=== PATIENT | male | born 1970 | race Caucasian/White ===

== ENCOUNTER 2023-02-02 08:06 | Emergency (ER) | payer MEDICAID, OTHER ==
[~2023-02-02] VITALS: Ht 172.7 cm; Wt 91.0 kg
[2023-02-02 08:10] VITALS: BP 135/89
[2023-02-02 09:03] LABS: Basophils # (auto) 0.1 10 ^3/uL (0-0.2); Basophils % (auto) 0.6 % (0.0-2.0); Eosinophils # (auto) 0.2 10 ^3/uL (0-0.8); Eosinophils % (auto) 1.2 % (0.0-7.0); Hemoglobin 16.2 g/dL (13.5-17.5); Lymphocytes # (auto) 2.8 10 ^3/uL (0.4-5.4); Lymphocytes % (auto) 20.2 % (10.0-50.0); Mean Corpuscular Hemoglobin 31.7 pg (28.0-32.0); Mean Corpuscular Hgb Conc. 34.6 g/dL (32.0-36.0); Mean Corpuscular Volume 91.7 fL (80.0-100.0); Monocytes # (auto) 0.8 10 ^3/uL (0-1.3); Neutrophils # (auto) 10.1 10 ^3/uL (1.6-8.6); Nucleated Red Blood Cells % 0.1 %; Red Blood Cells 5.12 10^6/uL (4.5-5.90); Red Cell Distribution Width 12.7 % (11.8-14.3); White Blood Cell 14.1 10^3/uL (4.4-10.8)
[2023-02-02 09:21] LABS: Albumin 3.1 g/dL (3.4-5.0); Calcium 8.6 mg/dL (8.5-10.1); Potassium 4.4 mmol/L (3.5-5.1)
[2023-02-02 09:25] LABS: BUN/Creatinine Ratio 13.3 (10.0-20.0); Bilirubin, Total 0.5 mg/dL (0.2-1.0); Total Protein 7.3 g/dL (6.4-8.2)
[2023-02-02] MEDS ORDERED: DexAMETHasone 4 MG TAB PO ONE (10:45)
[2023-02-02] MEDS ORDERED: IPRATROPIUM BROM 0.5 MG/2.5ML INH SOL NEB ONE (10:45)
[2023-02-02] MEDS ORDERED: ALBUTEROL SULF 2.5 MG/0.5ML(0.5%) NEB SOLN NEB ONE (10:45)
[2023-02-02] MEDS ORDERED: ALBUTEROL SULF 2.5 MG/0.5ML(0.5%) NEB SOLN ONE (10:49)
[2023-02-02] MEDS ORDERED: IPRATROPIUM BROM 0.5 MG/2.5ML INH SOL ONE (10:50)
[2023-02-02] MEDS ORDERED: IOHEXOL 350 MG/ML 100ML IJ ONE (11:41)
== END 2023-02-02 14:42 | disposition left against medical advice (07) ==
LOC: EDBD 08:06 → ER 08:06
DX: R06.02 Shortness of breath (principal); F17.210 Nicotine dependence, cigarettes, uncomplicated; I10 Essential (primary) hypertension
CPT/HCPCS: 36415; 36600; 71045; 71275; 80053; 82805; 83880; 84484; 85025; 85379; 93005; 94640; 99285; J7644; Q9967

== ENCOUNTER 2024-09-20 23:58 | Inpatient (IN) | payer MEDICAID, OTHER ==
[~2024-09-20] VITALS: Ht 172.7 cm; Wt 72.4 kg
[2024-09-21] VITALS (9 sets, daily range): BP systolic 123–153; BP diastolic 79–109; PULSE 86–101; RESP 17–24; TEMP 97.6–97.9; O2SAT 95–100
--- NOTE | 2024-09-21 00:06 | ED.PDOC ---
SOB-HPI HPI Comments 54-year-old male who came to ER via EMS for shortness of breath. Patient does have history of diabetes but has poor compliance to his medications. Patient states for the past 2 days he has been generally weak, has cough and progressive shortness of breath and wheezing. Noted orthopnea. Blood sugar on scene was 31 3. He has never been diagnosed to have any respiratory ailments Chief Complaint: Shortness of breath Time Seen by MD: 00:11 Primary Care Provider: UNKNOWN Reviewed notes: Nurses Notes Information Source: Patient, Emergency Med Personnel Mode of Arrival: EMS Severity: Moderate Timing: Days Duration: Since onset Context: At Rest, With Light Exertion PE Risk Factors: None History of: None Prehospital treatment: Breathing Tx, Oxygen Past Medical History PAST MEDICAL HISTORY: DM Surgical History: Denies all surgeries Family History Family History: Reviewed,noncontributory to illness Social History Smoker: Cigarettes Alcohol: Denies ETOH Use Drugs: Denies Drug Use Lives In: Home Constitutional: reports: weakness; denies: chills, diaphoresis, fatigue, fever, malaise, sweats, others EENTM: denies: blurred vision, double vision, ear bleeding, ear discharge, ear drainage, ear pain, ear ringing, eye pain, eye redness, hearing loss, mouth pain, mouth swelling, nasal discharge, nose bleeding, nose congestion, nose pain, photophobia, tearing, throat pain, throat swelling, voice changes, others Respiratory: reports: cough, orthopnea, SOB at rest, shortness of breath, SOB with excertion; denies: hemoptysis, stridor, wheezing, others Cardiovascular: reports: chest pain; denies: dizzy spells, diaphoresis, Dyspnea on exertion, edema, irregular heart beat, left arm pain, lightheadedness, palpitations, PND, syncope, others Gastrointestinal: denies: abdomen distended, abdominal pain, blood streaked bowels, constipated, diarrhea, dysphagia, difficulty swallowing, hematemesis, melena, nausea, poor appetite, poor fluid intake, rectal bleeding, rectal pain, vomiting, others Genitourinary: denies: burning, dysuria, flank pain, frequency, hematuria, incontinence, penile discharge, penile sore, pain, testicle pain, testicle swelling, urgency, others Neurological: denies: dizziness, fainting, headache, left sided numbness, left sided weakness, numbness, paresthesia, pre-existing deficit, right sided numbness, right sided weakness, seizure, speech problems, tingling, tremors, weakness, others Musculoskeletal: denies: back pain, gout, joint pain, joint swelling, muscle pain, muscle stiffness, neck pain, others Integumetry: denies: bruises, change in color, change in hair/nails, dryness, laceration, lesions, lumps, rash, wounds, others Allergic/Immunocompromised: denies: Difficulty Healing, Frequent Infections, Hives, Itching, others Hematologic/Lymphatic: denies: anemia, blood clots, easy bleeding, easy bruising, swollen glands, others Endocrine: denies: excessive hunger, excessive sweating, excessive thirst, excessive urination, flushing, intolerance to cold, intolerance to heat, unexplained weight gain, unexplained weight loss, others Psychiatric: denies: anxiety, bipolar disorder, depression, hopeless, panic disorder, schizophrenia, sleepless, suicidal, others Physical Exam General Appearance: No Apparent Distress, Normal HEENT: Normal ENT Inspection, Pharynx Normal, TMs Normal Neck: Full Range of Motion, Non-Tender, Normal, Normal Inspection Respiratory: Chest Non-Tender, Lungs Clear, No Accessory Muscle Use, No Respiratory Distress, Normal Breath Sounds Cardiovascular: No Edema, No JVD, No Murmur, No Gallop, Normal Peripheral Pulses, Regular Rate/Rhythm Breast Exam: Deferred Gastrointestinal: No Organomegaly, Non Tender, No Pulsatile Mass, Normal Bowel Sounds, Soft Genitalia: Deferred Pelvic: Deferred Rectal: Deferred Extremities: No calf tenderness, Normal capillary refill, Normal inspection, Normal range of motion, Non-tender, No pedal edema Musculoskeletal : Apperance: Normal Neurologic: Alert, electronics engineering technologist II-XII nml as Tested, No Motor Deficits, Normal Affect, Normal Mood, No Sensory Deficits Cerebellar Function: Normal Reflexes: Normal Skin: Dry, Normal Color, Warm Lymphatic: No Adenopathy Was a procedure done? Was a procedure done?: No Differential Dx Differential Diagnosis: Asthma, Bronchitis, CHF, COPD, Pneumonia, Respiratory Distress X-Ray, Labs, Meds, VS Vital Signs Date Time Temp Pulse Resp B/P (MAP) Pulse Ox O2 Delivery O2 Flow Rate FiO2 09/21/24 02:30 102 23 167/108 (127) 89 09/21/24 00:36 101 24 153/109 (124) 100 09/21/24 00:23 22 98 Nasal Cannula* 2 28 09/21/24 00:15 95 09/21/24 00:08 98.4 90 30 136/92 (107) 100 Lab Test 09/21/24 01:25 09/21/24 00:27 Range/Units Troponin I High Sensitivity 28 28 </=54 ng/L White Blood Count 11.1 H 4.4-10.8 10^3/uL Red Blood Count 4.68 4.5-5.90 10^6/uL Hemoglobin 14.9 13.5-17.5 g/dL Hematocrit 44.8 41.0-53.0 % Mean Corpuscular Volume 95.7 80.0-100.0 fL Mean Corpuscular Hemoglobin 31.8 28.0-32.0 pg Mean Corpuscular Hemoglobin Concent 33.3 32.0-36.0 g/dL Red Cell Distribution Width 13.4 11.8-14.3 % Platelet Count 202 140-450 10^3/uL Mean Platelet Volume 8.1 6.9-10.8 fL Neutrophils (%) (Auto) 57.1 37.0-80.0 % Lymphocytes (%) (Auto) 31.8 10.0-50.0 % Monocytes (%) (Auto) 7.7 0.0-12.0 % Eosinophils (%) (Auto) 2.8 0.0-7.0 % Basophils (%) (Auto) 0.6 0.0-2.0 % Neutrophils # (Auto) 6.3 1.6-8.6 10 ^3/uL Lymphocytes # (Auto) 3.5 0.4-5.4 10 ^3/uL Monocytes # (Auto) 0.8 0-1.3 10 ^3/uL Eosinophils # (Auto) 0.3 0-0.8 10 ^3/uL Basophils # (Auto) 0.1 0-0.2 10 ^3/uL Nucleated Red Blood Cells 0.1 % Sodium Level 138 136-145 mmol/L Potassium Level 4.3 3.5-5.1 mmol/L Chloride Level 106 98-107 mmol/L Carbon Dioxide Level 28 20-31 mmol/L Anion Gap 4 L 5-15 Blood Urea Nitrogen 14 9-23 mg/dL Creatinine 0.88 0.700-1.30 mg/dL Glomerular Filtration Rate Calc 102 >90 mL/min BUN/Creatinine Ratio 15.9 10.0-20.0 Serum Glucose 308 H 74-106 mg/dL Calcium Level 8.8 8.7-10.4 mg/dL Magnesium Level 1.8 1.6-2.6 mg/dL Total Bilirubin 0.4 0.2-1.0 mg/dL Aspartate Amino Transferase (AST) 30 13-40 U/L Alanine Aminotransferase (ALT) 43 H 7-40 U/L Alkaline Phosphatase 123 H 46-116 U/L B-Type Natriuretic Peptide 497.83 0-100 pg/mL Total Protein 6.6 5.7-8.2 g/dL Albumin 3.6 3.2-4.8 g/dL Current Medications Medications (Trade) Dose Ordered Sig/Juan Route Start Time Stop Time Status Last Admin Albuterol (Ventolin Medneb) 5 mg ONCE ONCE HHN 09/21/24 00:15 09/21/24 00:16 DC 09/21/24 00:22 Ipratropium [place] (Atrovent Medneb) 1 mg ONCE ONCE N 09/21/24 00:15 09/21/24 00:16 DC 09/21/24 00:22 Magnesium Sulfate/ Dextrose 100 ml @ 100 mls/hr Q1H IV 09/21/24 00:15 09/21/24 02:14 DC 09/21/24 01:56 Time of 1ST Reevaluation: 00:05 Reevaluation 1ST: Unchanged Time of 2ND Reevaluation: 03:08 Reevaluation 2ND: Unchanged (PATIENT BECOMES HYPOXIC WHEN TAKEN OFF OF OXYGEN, WILL ADMIT FOR SUPPORTIVE CARE) Patient Education/Counseling: Diagnosis, Treatment Family Education/Counseling: No Family Present Departure 1 Departure Time of Disposition: 03:37 Impression: Primary Impression: COPD with acute exacerbation Additional Impressions: Type 2 diabetes mellitus with hyperglycemia Respiratory failure with hypoxia Disposition: ADMITTED INPATIENT Admit to: Med Surg Condition: Guarded e-Prescriptions Metformin Hydrochloride (Metformin Hcl) 1,000 Mg Tab 1 TAB PO BID for 90 Days, #180 TAB 3 Refills Prov: JESSE MARIE MD 09/21/24 Azithromycin (Azithromycin) 500 Mg Tab 1 TAB PO DAILY for 7 Days, #7 TAB Prov: JESSE MARIE MD 09/21/24 Albuterol Sulfate (Albuterol Sulfate Hfa) 108 Mcg/Act Aer 108 MCG IN Q4HP PRN for 10 Days, #1 AER 3 Refills Prov: JESSE MARIE MD 09/21/24 Critical Care Note Critical Care Time?: Yes (35 min-critical care time only) Stability Stability form required: No Heart Score Heart Score: Heart Score Response (Comments) Value History Moderate Suspicious 1 EKG Normal 0 Age 45-64 1 Risk Factors 1 or 2 risk factors 1 Troponin Normal limit 0 Total 3 I personally scribed for JESSE MARIE MD ([email or web address]) on 09/21/24 at 00:06. Electronically submitted by Wilver Peck ([email or web address]). I personally scribed for JESSE MARIE MD ([email or web address]) on 09/21/24 at 00:13. Electronically submitted by Wilver Peck ([email or web address]). I personally scribed for JESSE MARIE MD ([email or web address]) on 09/21/24 at 02:54. Electronically submitted by Wilver Peck ([email or web address]). JESSE MARIE MD Sep 21, 2024 00:06
[2024-09-21] MEDS: ALBUTEROL SULF 2.5 MG/0.5ML(0.5%) NEB SOLN HHN ONE (00:22)
[2024-09-21] MEDS: IPRATROPIUM BROM 0.5 MG/2.5ML INH SOL HHN ONE (00:22)
--- NOTE | 2024-09-21 00:35 | DVH ---
CHEST RADIOGRAPH Indication: SOB Technique: Single frontal view of the chest was obtained COMPARISON: XY CHEST PORTABLE on DOS: 02/02/23 FINDINGS: Lines and Tubes: None Lungs: Questionable mild interstitial pulmonary edema. Pleura: No effusion. No pneumothorax. Cardiomediastinal contours: Cardiomegaly Bones: Unremarkable IMPRESSION: 1. Questionable mild interstitial pulmonary edema.
[2024-09-21] MEDS: MAGNESIUM SULFATE 1GM/100ML 100 ML IV SCH (00:36)
[2024-09-21 00:47] LABS: Basophils # (auto) 0.1 10 ^3/uL (0-0.2); Basophils % (auto) 0.6 % (0.0-2.0); Eosinophils # (auto) 0.3 10 ^3/uL (0-0.8); Eosinophils % (auto) 2.8 % (0.0-7.0); Hematocrit 44.8 % (41.0-53.0); Hemoglobin 14.9 g/dL (13.5-17.5); Lymphocytes # (auto) 3.5 10 ^3/uL (0.4-5.4); Lymphocytes % (auto) 31.8 % (10.0-50.0); Mean Corpuscular Hemoglobin 31.8 pg (28.0-32.0); Mean Corpuscular Hgb Conc. 33.3 g/dL (32.0-36.0); Mean Corpuscular Volume 95.7 fL (80.0-100.0); Monocytes # (auto) 0.8 10 ^3/uL (0-1.3); Monocytes % (auto) 7.7 % (0.0-12.0); Neutrophils # (auto) 6.3 10 ^3/uL (1.6-8.6); Neutrophils % (auto) 57.1 % (37.0-80.0); Nucleated Red Blood Cells % 0.1 %; Platelet Count (auto) 202 10^3/uL (140-450); Red Blood Cells 4.68 10^6/uL (4.5-5.90); Red Cell Distribution Width 13.4 % (11.8-14.3); White Blood Cell 11.1 10^3/uL (4.4-10.8)
[2024-09-21 01:02] LABS: Alanine Aminotransferase 43 U/L (7-40); Albumin 3.6 g/dL (3.2-4.8); Alkaline Phosphatase 123 U/L (46-116); Anion Gap 4 (5-15); Aspartate Aminotransferase 30 U/L (13-40); BUN/Creatinine Ratio 15.9 (10.0-20.0); Blood Urea Nitrogen 14 mg/dL (9-23); Calcium 8.8 mg/dL (8.7-10.4); Carbon Dioxide 28 mmol/L (20-31); Chloride 106 mmol/L (98-107); Glucose 308 mg/dL (74-106); Magnesium 1.8 mg/dL (1.6-2.6); Potassium 4.3 mmol/L (3.5-5.1); Sodium 138 mmol/L (136-145)
[2024-09-21 01:03] LABS: Bilirubin, Total 0.4 mg/dL (0.2-1.0); Total Protein 6.6 g/dL (5.7-8.2)
[2024-09-21] MEDS ORDERED: ALBU108A5 IN (01:32)
[2024-09-21] MEDS ORDERED: AZIT500T66 PO (01:33)
[2024-09-21] MEDS ORDERED: METF-372 PO (01:34)
[2024-09-21] MEDS ORDERED: HYDROcodone-ACET 5/325MG TAB PO PRN (03:45)
[2024-09-21] MEDS ORDERED: ONDANSETRON HCL 4 MG/2 ML VIAL IV PRN (03:45)
[2024-09-21] MEDS ORDERED: ALBUTEROL SULF 2.5 MG/0.5ML(0.5%) NEB SOLN NEB PRN (03:45)
[2024-09-21] MEDS ORDERED: DOCUSATE SOD 100 MG CAP PO PRN (03:45)
[2024-09-21] MEDS ORDERED: ACETAMINOPHEN 325 MG TAB PO PRN (03:45)
[2024-09-21] MEDS ORDERED: hydrALAZINE HCL 20 MG/ML VL IV PRN (03:45)
[2024-09-21] MEDS ORDERED: DEXTROSE (50%) 50ML SYRG IV PRN (03:45)
[2024-09-21] MEDS ORDERED: IPRATROPIUM BROM 0.5 MG/2.5ML INH SOL NEB PRN (03:45)
--- NOTE | 2024-09-21 04:28 | DVHHP2 ---
History of Present Illness Reason for Visit: Acute exacerbation of congestive heart failure History of Present Illness The patient is a 54-year-old male with past medical history of diabetes mellitus who presented [facility] ED with complaint of shortness of breaths. Patient reports symptoms progressively get worse with cough, wheezing, orthopnea, shortness of at rest, getting worse today that prompted this visit. Patient was seen and evaluated in the ED, laboratory data shows WBC 11.1 platelets 202, sodium 138, potassium 4.3, BUN 14, creatinine 0.88, GFR 102, glucose 308, AST 30, ALT 43, troponin 28, BNP 497.83, blood pressure 167/103, heart rate 102, temperature 98.4 F, O2 saturation 96% on oxygen. Chest x-ray revealing questionable mild interstitial pulmonary edema. Patient was given breathing treatment, started on IV Lasix, please see medication orders section in the computer. On my assessment, patient denied chest pain, no headache, no d izziness, no diaphoresis, no palpitations, no abdominal pain no nausea, no vomiting, no fever, no chills. Patient was admitted for further evaluation and medical management. Past Medical History DM Past Surgical History Denies all surgeries Family History Reviewed, noncontributory to the management of this case. Past Social History Patient lives at home, smokes cigarettes, denies alcohol or illicit drugs abuse. Review of Systems Constitutional: Yes: Weakness; No: Fever, Chills, Sweats, Malaise, Other Eyes: No: Pain, Vision change, Conjunctivae inflammation, Eyelid inflammation, Other, Redness ENT: No: Ear pain, Ear discharge, Nose pain, Nose discharge, Nose congestion, Mouth pain, Mouth swelling, Throat pain, Throat swelling, Other Respiratory: Cough, Shortness of breath, SOB with excertion, Other (SOB at rest); No: Dry, Wheezing, Hemoptysis, Pleuritic Pain, Sputum, Wheezing Cardiovascular: Chest Pain, Orthopnea; No: Palpitations, Paroxysmal Noc. Dyspnea, Edema, Lt Headedness, Other Gastrointestinal: No: Nausea, Vomiting, Abdominal Pain, Diarrhea, Constipation, Melena, Hematochezia, Other Genitourinary: No Dysuria, No Frequency, No Incontinence, No Hematuria, No Retention, No Other Musculoskeletal: No: other, neck pain, shoulder pain, arm pain, back pain, hand pain, leg pain, foot pain Skin: No: Rash, Lesions, Jaundice, Bruising, Other Neurological: No: Weakness, Numbness, Incoordination, Change in speech, Confusion, Seizures, Other Allergies: Coded Allergies: Penicillins (Verified Allergy, Unknown, 02/02/23) Tetanus Toxoid (Verified Allergy, Unknown, 02/02/23) Medications Current Medications Medications Dose Ordered Sig/Juan Route Start Time Stop Time Status Last Admin Dose Admin Furosemide 40 mg DAILY IV 09/21/24 10:00 Albuterol 2.5 mg Q4HPRN PRN NEB 09/21/24 03:45 Ipratropium [place] 0.5 mg Q4HPRN PRN NEB 09/21/24 03:45 Hydralazine HCl 10 mg Q6HP PRN IV 09/21/24 03:45 Diagnostic Test (Pha) 1 strip ACHS 09/21/24 07:00 Insulin Human Regular HS SC 09/21/24 22:00 Insulin Human Regular AC SC 09/21/24 07:00 Dextrose 50 ml UD PRN IV 09/21/24 03:45 Sodium Chloride 10 ml Q8HR IV 09/21/24 06:00 Acetaminophen/ Hydrocodone Bitart 1 tab Q4HP PRN PO 09/21/24 03:45 Ondansetron HCl 4 mg Q4HP PRN IV 09/21/24 03:45 Docusate Sodium 100 mg BIDPRN PRN PO 09/21/24 03:45 Acetaminophen 650 mg Q6HP PRN PO 09/21/24 03:45 Exam Vital Signs Vital Signs Date Time Temp Pulse Resp B/P (MAP) Pulse Ox O2 Delivery O2 Flow Rate FiO2 09/21/24 03:51 101 24 153/109 98 2.0 28 09/21/24 00:23 Nasal Cannula* 09/21/24 00:08 98.4 General Appearance: Alert, Oriented X3, Cooperative, No acute distress HEENT: Atraumatic, PERRLA, EOMI, Mucous membr. moist/pink Respiratory: Normal air movement, Other (Diminished breath sounds) Cardiovascular: Regular rate, Normal S1, Normal S2, No murmurs Abdominal: Normal bowel sounds, Soft, No tenderness, No hepatospenomegaly, No masses Extremities: No clubbing, No cyanosis, No edema, Normal pulses, No tenderness/swelling Skin: No rashes, No breakdown, No significant lesion Neuro: Normal gait, Normal speech, Strength at 5/5 X4 ext, Normal tone, Sensation intact, Cranial nerves 3-12 NL, Reflexes 2+ Psych/Mental Status: Mental status NL, Mood NL Labs/Xrays Labs Test 09/21/24 01:25 09/21/24 00:27 Range/Units Troponin I High Sensitivity 28 </=54 ng/L White Blood Count 11.1 H 4.4-10.8 10^3/uL Red Blood Count 4.68 4.5-5.90 10^6/uL Hemoglobin 14.9 13.5-17.5 g/dL Hematocrit 44.8 41.0-53.0 % Mean Corpuscular Volume 95.7 80.0-100.0 fL Mean Corpuscular Hemoglobin 31.8 28.0-32.0 pg Mean Corpuscular Hemoglobin Concent 33.3 32.0-36.0 g/dL Red Cell Distribution Width 13.4 11.8-14.3 % Platelet Count 202 140-450 10^3/uL Mean Platelet Volume 8.1 6.9-10.8 fL Neutrophils (%) (Auto) 57.1 37.0-80.0 % Lymphocytes (%) (Auto) 31.8 10.0-50.0 % Monocytes (%) (Auto) 7.7 0.0-12.0 % Eosinophils (%) (Auto) 2.8 0.0-7.0 % Basophils (%) (Auto) 0.6 0.0-2.0 % Neutrophils # (Auto) 6.3 1.6-8.6 10 ^3/uL Lymphocytes # (Auto) 3.5 0.4-5.4 10 ^3/uL Monocytes # (Auto) 0.8 0-1.3 10 ^3/uL Eosinophils # (Auto) 0.3 0-0.8 10 ^3/uL Basophils # (Auto) 0.1 0-0.2 10 ^3/uL Nucleated Red Blood Cells 0.1 % Sodium Level 138 136-145 mmol/L Potassium Level 4.3 3.5-5.1 mmol/L Chloride Level 106 98-107 mmol/L Carbon Dioxide Level 28 20-31 mmol/L Anion Gap 4 L 5-15 Blood Urea Nitrogen 14 9-23 mg/dL Creatinine 0.88 0.700-1.30 mg/dL Glomerular Filtration Rate Calc 102 >90 mL/min BUN/Creatinine Ratio 15.9 10.0-20.0 Serum Glucose 308 H 74-106 mg/dL Calcium Level 8.8 8.7-10.4 mg/dL Magnesium Level 1.8 1.6-2.6 mg/dL Total Bilirubin 0.4 0.2-1.0 mg/dL Aspartate Amino Transferase (AST) 30 13-40 U/L Alanine Aminotransferase (ALT) 43 H 7-40 U/L Alkaline Phosphatase 123 H 46-116 U/L B-Type Natriuretic Peptide 497.83 0-100 pg/mL Total Protein 6.6 5.7-8.2 g/dL Albumin 3.6 3.2-4.8 g/dL PATIENT: RACHEL HINSON ACCT: [id number] UNIT: [id number] : 1970 LOC: ER ROOM / BED: / AGE / SEX: 54 / M ADM STATUS: REG ER SERVICE 0004 ORDERING PHYSICIAN: JESSE MARIE MD PROCEDURE(s): CXRP - CHEST PORTABLE REASON: SOB ORDER NUMBER(s): [id number], ACCESSION NUMBER(s): [id number] CHEST RADIOGRAPH Indication: SOB Technique: Single frontal view of the chest was obtained COMPARISON: XY CHEST PORTABLE on DOS: 02/02/23 FINDINGS: Lines and Tubes: None Lungs: Questionable mild interstitial pulmonary edema. Pleura: No effusion. No pneumothorax. Cardiomediastinal contours: Cardiomegaly Bones: Unremarkable IMPRESSION: 1. Questionable mild interstitial pulmonary edema. Assessment/Plan Assessment/Plan Leukocytosis, unspecified COPD with acute exacerbation Type 2 diabetes mellitus with hyperglycemia Respiratory failure with hypoxia Acute exacerbation of congestive heart failure Plan 1. Admit to telemetry unit 2. Breathing treatment 3. Pain control management 4. Management of fluids and electrolytes 5. Consultation for Cardiology 6. Diagnostic tests chest x-ray 7. DVT prophylaxis-on SCDs 8. Repeat labs CBC, CMP in a.m. 9. Continue with current medical management 10. Treatment plan discussed with patient and RN. Patient verbalized understanding. Plan discussed with: Patient, Other (RN) My Orders Orders - KEITH CRAMER DNP Procedure Category Date Status Time Complete Blood Count LAB 09/21/24 Logged 04:00 Comprehensive LAB 09/21/24 Logged Metabolic Panel 04:00 Consistent DIET 09/21/24 Transmitted Carb(Ccho)Diabetes Breakfast Furosemide Injection PHA 09/21/24 In Process (Lasix Injection) 10:00 Albuterol Medneb PHA 09/21/24 In Process (Ventolin Medneb) 03:45 Ipratropium Medneb PHA 09/21/24 In Process (Atrovent Medneb) 03:45 Hydralazine Injection PHA 09/21/24 In Process (Apresoline Inject 03:45 Glucose Blood PHA 09/21/24 In Process (Accu-Chek Comfort 07:00 Insulin R (Human) PHA 09/21/24 In Process (Insulin R) 22:00 Insulin R (Human) PHA 09/21/24 In Process (Insulin R) 07:00 Dextrose 50% Syringe PHA 09/21/24 In Process 03:45 Allergies KATLYN 09/21/24 In Process 03:33 Code Status CODE 09/21/24 Transmitted 03:33 Sodium Chloride Lock PHA 09/21/24 In Process (Saline Lock Ns) 06:00 Oxygen Per Hour RT 09/21/24 Transmitted 03:33 Hydrocodone-Acet PHA 09/21/24 In Process 5/325mg Tab ([place] 03:45 Ondansetron Hcl PHA 09/21/24 In Process (Zofran) 03:45 Docusate Sodium PHA 09/21/24 In Process Capsule (Colace 03:45 Complete Blood Count LAB 09/22/24 Verified 04:00 Comprehensive LAB 09/22/24 Verified Metabolic Panel 04:00 Cardiac DIET 09/21/24 Transmitted Diet-2gna,Lofat,Lochol Breakfast Echo 2d Mode Cardiac US 09/21/24 Logged DOP 03:33 Condition: Serious KATLYN 09/21/24 In Process 03:33 Acetaminophen Tablet PHA 09/21/24 In Process (Tylenol Tablet) 03:45 Bedrest With Bathroom KATLYN 09/21/24 In Process Privileg 03:33 Sequential KATLYN 09/21/24 In Process Compression Device Admit ADMIT 09/21/24 Verified 04:26 Nitroglycerin PHA 09/21/24 Verified Sublingual (Ntrostat 04:30 Morphine Sulfate PHA 09/21/24 Verified Injection 04:30 Notify Of Changes KATLYN 09/21/24 Verified From Base 04:26 Primary Substance Abuse Counselor For KATLYN 09/21/24 Verified 24 Hours 04:26 Emergency Dysrhythmia [facility] 09/21/24 Verified Protocol 04:26 Rhythm Strips Once [facility] 09/21/24 Verified Every Shift 04:26 Oxygen By Nasal RT 09/21/24 Verified Cannula 04:26 Problem List: (1) Leukocytosis, unspecified (2) COPD with acute exacerbation (3) Respiratory failure with hypoxia (4) Type 2 diabetes mellitus with hyperglycemia (5) Acute exacerbation of congestive heart failure Date of Service: Sep 21, 2024 Billing Provider: KEITH CRAMER DNP Common Visit Codes: [id number] INP/OBS CARE (HIGH) KEITH CRAMER DNP Sep 21, 2024 04:28
[2024-09-21] MEDS ORDERED: MORPHINE SULFATE INJ 2 MG/ml SYRG IV PRN (04:30)
[2024-09-21] MEDS ORDERED: NITROGLYCERIN 0.4 MG SL TAB SL PRN (04:30)
[2024-09-21] MEDS: FUROSEMIDE 40 MG/4 ML VIAL IV ONE (05:32)
[2024-09-21] MEDS: SODIUM CHLOR 0.9% PF (SALINE LOCK) 10ML VIAL/SYR IV SCH (05:34)
--- NOTE | 2024-09-21 06:46 | ECG ---
[facility] Test Date: 2024-09-21 Test Time: 00:15:24 Pat Name: RACHEL HINSON Department: ED Room: 0212T Gender: M [employer] Technician: RADHA : 1970 Requested By: JESSE MARIE Order Number: [id number] Reading MD: Rashaad Lemus Measurements Intervals [place] Rate: 95 P: 55 RI: 152 QRS: -5 QRSD: 96 T: 106 QT: 372 QTc: 468 Interpretive Statements Sinus rhythm Probable LVH with secondary repol abnrm Anterior ST elevation, probably due to LVH Electronically Signed On 09-24-2024 8:19:50 PST by Rashaad Lemus Please click the below link to view image of tracing.
[2024-09-21] MEDS: ACCU-CHEK COMFORT CURVE STRIP VI SCH (06:49)
[2024-09-21 07:40] LABS: Alanine Aminotransferase 44 U/L (7-40); Albumin 3.7 g/dL (3.2-4.8); Alkaline Phosphatase 137 U/L (46-116); Anion Gap 5 (5-15); Aspartate Aminotransferase 27 U/L (13-40); BUN/Creatinine Ratio 14.7 (10.0-20.0); Bilirubin, Total 0.6 mg/dL (0.2-1.0); Blood Urea Nitrogen 15 mg/dL (9-23); Calcium 8.8 mg/dL (8.7-10.4); Carbon Dioxide 28 mmol/L (20-31); Chloride 102 mmol/L (98-107); Glucose 370 mg/dL (74-106); Potassium 4.2 mmol/L (3.5-5.1); Sodium 135 mmol/L (136-145); Total Protein 7.1 g/dL (5.7-8.2)
[2024-09-21 08:10] LABS: Urine Bacteria None Seen /hpf (None Seen)
[2024-09-21 08:14] LABS: Basophils # (auto) 0.1 10 ^3/uL (0-0.2); Basophils % (auto) 0.5 % (0.0-2.0); Eosinophils # (auto) 0.2 10 ^3/uL (0-0.8); Eosinophils % (auto) 1.9 % (0.0-7.0); Hematocrit 47.8 % (41.0-53.0); Hemoglobin 15.8 g/dL (13.5-17.5); Lymphocytes # (auto) 2.6 10 ^3/uL (0.4-5.4); Lymphocytes % (auto) 24.6 % (10.0-50.0); Mean Corpuscular Hemoglobin 31.7 pg (28.0-32.0); Mean Corpuscular Hgb Conc. 33.1 g/dL (32.0-36.0); Mean Corpuscular Volume 95.8 fL (80.0-100.0); Monocytes # (auto) 0.9 10 ^3/uL (0-1.3); Monocytes % (auto) 8.1 % (0.0-12.0); Neutrophils # (auto) 6.8 10 ^3/uL (1.6-8.6); Neutrophils % (auto) 64.9 % (37.0-80.0); Nucleated Red Blood Cells % 0.1 %; Platelet Count (auto) 206 10^3/uL (140-450); Red Blood Cells 4.99 10^6/uL (4.5-5.90); Red Cell Distribution Width 13.8 % (11.8-14.3); White Blood Cell 10.5 10^3/uL (4.4-10.8)
[2024-09-21 08:17] LABS: Urine Blood Negative /uL (Negative); Urine Clarity Clear (Clear); Urine Color Light-Yellow (Yellow); Urine Hyaline Cast FEW /lpf (0 - 2); Urine Protein, UAD 2+ (Negative); Urine Specific Gravity 1.017 (1.001-1.035); Urine Urobilinogen Normal (Negative); Urine WBC <1 /hpf (0 - 3)
[2024-09-21] MEDS: InsuLIN REG 1unit/0.01ml Soln (100units/ml) SC SCH (08:22)
[2024-09-21] MEDS: FUROSEMIDE 40 MG/4 ML VIAL IV SCH (10:23)
[2024-09-21] MEDS: CARVEDILOL 3.125 MG TAB PO SCH (10:24)
[2024-09-21] MEDS: NICOTINE 21MG/24 HR TOPICAL PATCH TD SCH (10:24)
[2024-09-21 11:59] LABS: Amphetamine Screen, Urine Pos (NEGATIVE); Barbiturate Scree,Urine Neg (NEGATIVE); Benzodiazephine Screen, Urine Neg (NEGATIVE); Cocaine Screen, Urine Neg (NEGATIVE); Opiate Scree,Urine Neg (NEGATIVE)
[2024-09-21 11:59] LABS: Triglycerides 118 mg/dL (< 150)
[2024-09-21 12:00] LABS: LDL Cholesterol 125 mg/dL (< 100)
[2024-09-21 12:00] LABS: Cannabinoid Screen, Urine Pos (NEGATIVE); Phencyclidine Screen, Urine Neg (NEGATIVE)
[2024-09-21 12:01] LABS: Cholesterol 174 mg/dL (< 200); HDL Cholesterol 42 mg/dL (40-59)
--- NOTE | 2024-09-21 13:14 | DVHINCON2 ---
Date Seen: Sep 21, 2024 Referring Physician SHILPA Copeland Reason for Consultation CHF exacerbation History of Present Illness This is a 54-year-old male patient who presents to the emergency room with chief complaint of worsening shortness of breath for three days. The patient states he has been having issues with orthopnea and dyspnea on exertion. He comes to the emergency room for further evaluation. Cardiology is now being consulted for CHF exacerbation. The patient denies any previous history of congestive heart failure. Initial twelve lead electrocardiogram reveals normal sinus rhythm without any significant ST segment changes. Initial BNP level of 497.83pg/mL. Significant past medical history includes hypertension, type 2 diabetes mellitus, tobacco use, amphetamine abuse, and obesity. The patient admits to using methamphetamine approximately three days ago. He denies any previous cardiac history. Past Medical History Past medical history reviewed. No other significant than mentioned above. Past Surgical History Tonsillectomy Family History Family history reviewed. Social History Patient admits to methamphetamine abuse, toxicology screen positive for amphetamines and cannabinoids Patient has a 10 pack-year history, reports smoking half a pack per day Patient denies any alcohol abuse Allergies: Coded Allergies: Penicillins (Verified Allergy, Unknown, 02/02/23) Tetanus Toxoid (Verified Allergy, Unknown, 02/02/23) Home Meds Active Scripts Metformin Hydrochloride (Metformin Hcl) 1,000 Mg Tab, 1 TAB PO BID for 90 Days, #180 TAB 3 Refills Prov:JESSE MARIE MD 09/21/24 Azithromycin (Azithromycin) 500 Mg Tab, 1 TAB PO DAILY for 7 Days, #7 TAB Prov:JESSE MARIE MD 09/21/24 Albuterol Sulfate (Albuterol Sulfate Hfa) 108 Mcg/Act Aer, 108 MCG IN Q4HP PRN for 10 Days, #1 AER 3 Refills Prov:JESSE MARIE MD 09/21/24 Home Meds Home medications reviewed. Current Medications Current Medications Medications (Trade) Dose Ordered Sig/Juan Route PRN Reason Start Time Stop Time Status Last Admin Magnesium Sulfate/ Dextrose 100 ml @ 100 mls/hr Q1H IV 09/21/24 00:15 09/21/24 02:14 DC 09/21/24 01:56 Furosemide (Lasix Injection) 40 mg DAILY IV 09/21/24 10:00 09/21/24 10:23 Albuterol (Ventolin Medneb) 2.5 mg Q4HPRN PRN NEB SHORTNESS OF BREATH 09/21/24 03:45 Ipratropium [place] (Atrovent Medneb) 0.5 mg Q4HPRN PRN NEB SHORTNESS OF BREATH 09/21/24 03:45 Hydralazine HCl (Apresoline Injection) 10 mg Q6HP PRN IV SBP>150 09/21/24 03:45 Diagnostic Test (Pha) (Accu-Chek Comfort Curve T) 1 strip ACHS 09/21/24 07:00 09/21/24 11:30 Insulin Human Regular (InsuLIN R) HS SC 09/21/24 22:00 Insulin Human Regular (InsuLIN R) AC SC 09/21/24 07:00 09/21/24 12:05 Dextrose 50 ml UD PRN IV Blood Sugar LESS THAN 60 09/21/24 03:45 Sodium Chloride (Saline Lock Ns) 10 ml Q8HR IV 09/21/24 06:00 09/21/24 05:34 Acetaminophen/ Hydrocodone Bitart ([place] 5/325MG Tab) 1 tab Q4HP PRN PO MODERATE PAIN (4-6 PAIN SCALE) 09/21/24 03:45 Ondansetron HCl (Zofran) 4 mg Q4HP PRN IV NAUSEA / VOMITING 09/21/24 03:45 Docusate Sodium (Colace Capsule) 100 mg BIDPRN PRN PO FOR CONSTIPATION 09/21/24 03:45 Acetaminophen (Tylenol Tablet) 650 mg Q6HP PRN PO PAIN SCALE 1-3 OR TEMP>100.4 09/21/24 03:45 Nitroglycerin (Ntrostat Sublingual) 0.4 mg Q5MINP PRN SL FOR CHEST PAIN 09/21/24 04:30 Morphine Sulfate 2 mg Q30M PRN IV FOR CHEST PAIN 09/21/24 04:30 Nicotine (Nicoderm 21MG/ 24HR) 1 patch DAILY TD 09/21/24 10:00 09/21/24 10:24 Carvedilol (Coreg Tablet) 6.25 mg Q12HR PO 09/21/24 10:00 09/21/24 10:24 Review of Systems Constitutional: No symptom reported Ears, Nose, & Throat: No symptom reported Eyes: No symptom reported Neurological: No symptoms reported Pulmonary/Respiratory: Shortness of breath Cardiovascular: No symptom reported Gastrointestinal: No symptom reported Genitourinary: No symptom reported Musculoskeletal: No symptom reported Skin: No symptom reported Psychiatric: No symptom reported Endocrine: No symptom reported Hematologic/Lymphatic: No symptom reported Vital Signs Vital Signs Date Time Temp Pulse Resp B/P (MAP) Pulse Ox O2 Delivery O2 Flow Rate FiO2 09/21/24 11:24 93 139/92 09/21/24 09:00 23 97 09/21/24 07:45 Nasal Cannula* 2 28 09/21/24 07:45 98.0 98.0 Physical Exam General Appearance: Cooperative. Unkempt. Obese Pulmonary/Respiratory: Diminished bilateral lower lobe sounds. Cardiovascular/Chest: Regular rate and rhythm. Peripheral Pulses: 2+ Radial (R). 2+ Radial (L). 2+ Pedal (R). 2+ Pedal (L) Abdominal Exam: Normal bowel sounds. Ankle Exam: Negative ankle edema Lower extremities: Negative lower extremity edema Neuro/Mental Status: A/OX4, coherent. Thoughts/Psych: Normal thought pattern. Appropriate mood and affect. Good judgment and insight. Appearance: No acute distress. Skin Exam: Normal inspection. Normal color. Warm and dry. Labs/Diagnostic Data Labs Test 09/21/24 11:55 09/21/24 08:00 09/21/24 06:58 09/21/24 01:25 Range/Units POC Glucose 341 H 70-106 mg/dl Urine Color Light-yellow Yellow Urine Clarity Clear Clear Urine pH 6.0 5.0-9.0 Urine Specific [place] 1.017 1.001-1.035 Urine Protein 2+ H Negative Urine Ketones Negative Negative Urine Blood Negative Negative /uL Urine Nitrite Negative Negative Urine Bilirubin Negative Negative Urine Urobilinogen Normal Negative mg/dL Urine Leukocyte Esterase Negative Negative /uL Urine RBC 1 0 - 3 /hpf Urine WBC <1 0 - 3 /hpf Urine Squamous Epithelial Cells None seen <5 /hpf Urine Bacteria None seen None Seen /hpf Urine Hyaline Casts Few 0 - 2 /lpf Urine Glucose 2+ H Normal mg/dL Urine Opiates Screen Neg NEGATIVE Urine Fentanyl Screen Neg NEGATIVE Urine Barbiturates Screen Neg NEGATIVE Urine Phencyclidine Screen Neg NEGATIVE Urine Amphetamines Screen Pos NEGATIVE Urine Benzodiazepines Screen Neg NEGATIVE Urine Cocaine Screen Neg NEGATIVE Urine Cannabinoids Screen Pos NEGATIVE White Blood Count 10.5 4.4-10.8 10^3/uL Red Blood Count 4.99 4.5-5.90 10^6/uL Hemoglobin 15.8 13.5-17.5 g/dL Hematocrit 47.8 41.0-53.0 % Mean Corpuscular Volume 95.8 80.0-100.0 fL Mean Corpuscular Hemoglobin 31.7 28.0-32.0 pg Mean Corpuscular Hemoglobin Concent 33.1 32.0-36.0 g/dL Red Cell Distribution Width 13.8 11.8-14.3 % Platelet Count 206 140-450 10^3/uL Mean Platelet Volume 8.5 6.9-10.8 fL Neutrophils (%) (Auto) 64.9 37.0-80.0 % Lymphocytes (%) (Auto) 24.6 10.0-50.0 % Monocytes (%) (Auto) 8.1 0.0-12.0 % Eosinophils (%) (Auto) 1.9 0.0-7.0 % Basophils (%) (Auto) 0.5 0.0-2.0 % Neutrophils # (Auto) 6.8 1.6-8.6 10 ^3/uL Lymphocytes # (Auto) 2.6 0.4-5.4 10 ^3/uL Monocytes # (Auto) 0.9 0-1.3 10 ^3/uL Eosinophils # (Auto) 0.2 0-0.8 10 ^3/uL Basophils # (Auto) 0.1 0-0.2 10 ^3/uL Nucleated Red Blood Cells 0.1 % Sodium Level 135 L 136-145 mmol/L Potassium Level 4.2 3.5-5.1 mmol/L Chloride Level 102 98-107 mmol/L Carbon Dioxide Level 28 20-31 mmol/L Anion Gap 5 5-15 Blood Urea Nitrogen 15 9-23 mg/dL Creatinine 1.02 0.700-1.30 mg/dL Glomerular Filtration Rate Calc 87 >90 mL/min BUN/Creatinine Ratio 14.7 10.0-20.0 Serum Glucose 370 H 74-106 mg/dL Hemoglobin A1c 10.3 H <5.7 % A1C Calcium Level 8.8 8.7-10.4 mg/dL Total Bilirubin 0.6 0.2-1.0 mg/dL Aspartate Amino Transferase (AST) 27 13-40 U/L Alanine Aminotransferase (ALT) 44 H 7-40 U/L Alkaline Phosphatase 137 H 46-116 U/L Total Protein 7.1 5.7-8.2 g/dL Albumin 3.7 3.2-4.8 g/dL Triglycerides Level 118 < 150 mg/dL Cholesterol Level 174 < 200 mg/dL LDL Cholesterol 125 H < 100 mg/dL HDL Cholesterol 42 40-59 mg/dL Thyroid Stimulating Hormone (TSH) 1.24 0.55-4.78 uIU/mL Troponin I High Sensitivity 28 </=54 ng/L Test 09/21/24 00:27 Range/Units Magnesium Level 1.8 1.6-2.6 mg/dL B-Type Natriuretic Peptide 497.83 0-100 pg/mL Assessment Acute on chronic decompensated HFrEF, NYHA class IV, newly diagnosed Hypertension Mitral valve regurgitation, moderate degree Type 2 diabetes mellitus, uncontrolled (Hgb A1c 10.3%) Amphetamine abuse Tobacco use Obesity Plan/Recommendation We will continue with the following plan/recommendations (Dr. Quinn): * Echocardiogram reveals EF 25%, dilated cardiomyopathy with RVSP 45 mmHg * Initiate guideline directed medical therapy for CHF as tolerated * Will add spironolactone with stable potassium * Strict intake and output, daily weights, maintain fluid restriction * Preload and afterload reduction * Lipid-lowering agent; monitor LFT's * Risk factor modifications, counseled * Cessation of amphetamine use Patient seen and examined at bedside with . Plan of care discussed with the patient. Thank you for allowing us to care for this patient. Please call with any questions or concerns. Critical care time spent: 41 minutes This medical document was created using an electronic medical record system with voice recognition software and computerized dictation system. Although this document has been carefully reviewed, there might still be some phonetic and typographical errors. Occasional wrong-word or ``sound-alike substitutions may have occurred due to the inherent limitations of voice recognition software. These areas are purely typographical due to imperfections of the software programs and do not reflect any compromise in the patient's medical care. Please read the chart carefully and recognize, using context, where these substitutions have occurred. Plan discussed with: Patient NYHA Physical activity limitations: Class4(Severe)discomfort (w any activit,symptoms at rest) Date of Service: Sep 21, 2024 Billing Provider: ISIAH NASH Cardiology Common Codes: [id number] INP/OBS CARE (High) Cardiology Consultation Codes: [id number] CONSULT <45MIN ISIAH NASHP Sep 21, 2024 13:14
--- NOTE | 2024-09-21 14:39 | DVHSR ---
APPROVED REPORT EXAM: Two-dimensional and M-mode echocardiogram with Doppler and color Doppler. Blood Pressure: 140/99 mmHg INDICATION CHF Exacerbation RISK FACTORS Height: 5' 8", Weight: 180 DIMENSIONS LVDd4.2 (3.8-5.7cm)LA (2D)4.2 (1.9-4.0cm)Aortic Root3.1 (2.0-3.7cm) LVDs3.7 (2.5-4.0cm)LA (MM) (1.9-4.0cm)Aortic Cusp Exc1.9 (1.5-2.0cm) EF (%) 25.0 (55-70%)Rt. Atrium4.2 (1.9-4.0cm)Asc. Aorta cm IVSd1.4 (0.7-1.1cm)RV (D) (1.8-2.4cm) PWd1.3 (0.7-1.1cm) Mitral Valve MitralMitral Stenosis E wave1.10m/sMV Mean GR.mmHg A wave0.40m/sMV Peak GR.134mmHg E/A ratio2.82D MVAcm2 DECEL [id number] 1/2 [place] Aortic Valve Aortic ValveAortic Stenosis V10.90m/Inez Mean GR.3mmHg V21.10m/Inez Peak GR.6mmHg LVOT Diameter2.2 (1.8-2.4cm)Doppler AVA3.11cm2 Pulmonic Valve V20.70m/s Tricuspid Valve TR Velocity3.00m/s [id number] Conclusion STUDY REVEAL DILATED CARDIOMYOPATHY DILATED ALL CARDIAC CHAMBERS LV EJECTION FRACTION IS 25% AND IS MODERATELY REDUCED MODERATE DEGREE MR MODERATE DEGREE PULMONARY HYPERTENSION RVSP IS 45 MM OF HG AND IS MODERATELY INCREASED NORMAL VALVES NO EFFUSION
--- NOTE | 2024-09-21 20:19 | DVHPN2 ---
Assessment/Plan Assessment/Plan Progress note Subjective 54-year-old male admitted for heart failure exacerbation. When I see the patient he is currently undergoing echo, however noted ejection fraction seems severely low. Comfortable lying flat, breathing in room air Objective Physical exam Alert, oriented x3 PERRLA JVD mid neck Mild crackles S1-S2 regular rate and rhythm systolic murmur Abdomen soft nontender, no organomegaly Moving all four extremities lower extremity edema Lab A1c 10.3 hyperglycemia mild transaminitis high alkphos negative trop proBNP 480 utox with amphetamines and cannabis leukocytosis EKG LVH with strain pattern Imaging pulm vasc congestion Assessment and plan Heart failure with reduced ejection fraction, not in exacerbation amphetamine use cannabis use tobacco use obesity hypertension uncontrolled diabetes strict I&O daily weight smoking cessation initiate GDMT consult cardio for ischemic workup in new onset heart failure substance use abstinence insulin basal bolus FS ACHS NRT PO lasix Replete electrolytes Diet hearth healthy DVT prophylaxis lovenox Plan discussed with: Patient Date of Service: Sep 21, 2024 Billing Provider: YOLANDE MORFIN MD Common Visit Codes: [id number] INP/OBS CARE(HIGH) YOLANDE MORFIN MD Sep 21, 2024 20:19
--- NOTE | 2024-09-21 21:06 | DVHINCON2 ---
Date Seen: Sep 21, 2024 Referring Physician SHILPA Copeland Reason for Consultation CHF exacerbation History of Present Illness This is a 54-year-old male with a past medical history of hypertension, type 2 diabetes mellitus, tobacco use, amphetamine abuse, and obesity who presents to the ED with complaint of worsening shortness of breath x 3 days. Patient states he has been having issues with orthopnea and SOB on exertion. Cardiology is now being consulted for CHF exacerbation. Patient denies any previous history of congestive heart failure or cardiac history. Patient admits to using methamphetamine approximately three days ago. Initial twelve lead electrocardiogram reveals normal sinus rhythm without any significant ST segment changes. Initial BNP level of 497.83pg/mL, WBC 11.1, NA 135, GLUC 341, ALT 44. Chest x-ray shows questionable mild interstitial pulmonary edema. Allergies: Coded Allergies: Penicillins (Verified Allergy, Unknown, 02/02/23) Tetanus Toxoid (Verified Allergy, Unknown, 02/02/23) Home Meds Active Scripts Metformin Hydrochloride (Metformin Hcl) 1,000 Mg Tab, 1 TAB PO BID for 90 Days, #180 TAB 3 Refills Prov:JESSE MARIE MD 09/21/24 Azithromycin (Azithromycin) 500 Mg Tab, 1 TAB PO DAILY for 7 Days, #7 TAB Prov:JESSE MARIE MD 09/21/24 Albuterol Sulfate (Albuterol Sulfate Hfa) 108 Mcg/Act Aer, 108 MCG IN Q4HP PRN for 10 Days, #1 AER 3 Refills Prov:JESSE MARIE MD 09/21/24 Current Medications Current Medications Medications (Trade) Dose Ordered Sig/Juan Route PRN Reason Start Time Stop Time Status Last Admin Magnesium Sulfate/ Dextrose 100 ml @ 100 mls/hr Q1H IV 09/21/24 00:15 09/21/24 02:14 DC 09/21/24 01:56 Furosemide (Lasix Injection) 40 mg DAILY IV 09/21/24 10:00 09/21/24 10:23 Albuterol (Ventolin Medneb) 2.5 mg Q4HPRN PRN NEB SHORTNESS OF BREATH 09/21/24 03:45 Ipratropium [place] (Atrovent Medneb) 0.5 mg Q4HPRN PRN NEB SHORTNESS OF BREATH 09/21/24 03:45 Hydralazine HCl (Apresoline Injection) 10 mg Q6HP PRN IV SBP>150 09/21/24 03:45 Diagnostic Test (Pha) (Accu-Chek Comfort Curve T) 1 strip ACHS 09/21/24 07:00 09/21/24 11:30 Insulin Human Regular (InsuLIN R) HS SC 09/21/24 22:00 Insulin Human Regular (InsuLIN R) AC SC 09/21/24 07:00 09/21/24 12:05 Dextrose 50 ml UD PRN IV Blood Sugar LESS THAN 60 09/21/24 03:45 Sodium Chloride (Saline Lock Ns) 10 ml Q8HR IV 09/21/24 06:00 09/21/24 14:35 Acetaminophen/ Hydrocodone Bitart ([place] 5/325MG Tab) 1 tab Q4HP PRN PO MODERATE PAIN (4-6 PAIN SCALE) 09/21/24 03:45 Ondansetron HCl (Zofran) 4 mg Q4HP PRN IV NAUSEA / VOMITING 09/21/24 03:45 Docusate Sodium (Colace Capsule) 100 mg BIDPRN PRN PO FOR CONSTIPATION 09/21/24 03:45 Acetaminophen (Tylenol Tablet) 650 mg Q6HP PRN PO PAIN SCALE 1-3 OR TEMP>100.4 09/21/24 03:45 Nitroglycerin (Ntrostat Sublingual) 0.4 mg Q5MINP PRN SL FOR CHEST PAIN 09/21/24 04:30 Morphine Sulfate 2 mg Q30M PRN IV FOR CHEST PAIN 09/21/24 04:30 Nicotine (Nicoderm 21MG/ 24HR) 1 patch DAILY TD 09/21/24 10:00 09/21/24 10:24 Carvedilol (Coreg Tablet) 6.25 mg Q12HR PO 09/21/24 10:00 09/21/24 10:24 Empaglifozin ([place]) 10 mg DAILY PO 09/22/24 10:00 UNV Sacubitril/ Valsartan ([place] 24-26 Mg tab) 1 tab BID PO 09/21/24 22:00 UNV Atorvastatin Calcium (Lipitor) 20 mg HS PO 09/21/24 22:00 UNV Review of Systems Constitutional: No symptom reported Ears, Nose, & Throat: No symptom reported Eyes: No symptom reported Neurological: No symptoms reported Pulmonary/Respiratory: Shortness of breath Cardiovascular: No symptom reported Gastrointestinal: No symptom reported Genitourinary: No symptom reported Musculoskeletal: No symptom reported Skin: No symptom reported Psychiatric: No symptom reported Endocrine: No symptom reported Hematologic/Lymphatic: No symptom reported Vital Signs Vital Signs Date Time Temp Pulse Resp B/P (MAP) Pulse Ox O2 Delivery O2 Flow Rate FiO2 09/21/24 11:24 93 139/92 09/21/24 09:00 23 97 09/21/24 07:45 Nasal Cannula* 2 28 09/21/24 07:45 98.0 98.0 Physical Exam GENERAL: Awake, alert, oriented. Unkempt. Morbidly obese. LUNGS: Diminished breath sounds. CARDIOVASCULAR: Heart sounds are good. ABDOMEN: Soft. Labs/Diagnostic Data Labs Test 09/21/24 11:55 09/21/24 08:00 09/21/24 06:58 09/21/24 01:25 Range/Units POC Glucose 341 H 70-106 mg/dl Urine Color Light-yellow Yellow Urine Clarity Clear Clear Urine pH 6.0 5.0-9.0 Urine Specific [place] 1.017 1.001-1.035 Urine Protein 2+ H Negative Urine Ketones Negative Negative Urine Blood Negative Negative /uL Urine Nitrite Negative Negative Urine Bilirubin Negative Negative Urine Urobilinogen Normal Negative mg/dL Urine Leukocyte Esterase Negative Negative /uL Urine RBC 1 0 - 3 /hpf Urine WBC <1 0 - 3 /hpf Urine Squamous Epithelial Cells None seen <5 /hpf Urine Bacteria None seen None Seen /hpf Urine Hyaline Casts Few 0 - 2 /lpf Urine Glucose 2+ H Normal mg/dL Urine Opiates Screen Neg NEGATIVE Urine Fentanyl Screen Neg NEGATIVE Urine Barbiturates Screen Neg NEGATIVE Urine Phencyclidine Screen Neg NEGATIVE Urine Amphetamines Screen Pos NEGATIVE Urine Benzodiazepines Screen Neg NEGATIVE Urine Cocaine Screen Neg NEGATIVE Urine Cannabinoids Screen Pos NEGATIVE White Blood Count 10.5 4.4-10.8 10^3/uL Red Blood Count 4.99 4.5-5.90 10^6/uL Hemoglobin 15.8 13.5-17.5 g/dL Hematocrit 47.8 41.0-53.0 % Mean Corpuscular Volume 95.8 80.0-100.0 fL Mean Corpuscular Hemoglobin 31.7 28.0-32.0 pg Mean Corpuscular Hemoglobin Concent 33.1 32.0-36.0 g/dL Red Cell Distribution Width 13.8 11.8-14.3 % Platelet Count 206 140-450 10^3/uL Mean Platelet Volume 8.5 6.9-10.8 fL Neutrophils (%) (Auto) 64.9 37.0-80.0 % Lymphocytes (%) (Auto) 24.6 10.0-50.0 % Monocytes (%) (Auto) 8.1 0.0-12.0 % Eosinophils (%) (Auto) 1.9 0.0-7.0 % Basophils (%) (Auto) 0.5 0.0-2.0 % Neutrophils # (Auto) 6.8 1.6-8.6 10 ^3/uL Lymphocytes # (Auto) 2.6 0.4-5.4 10 ^3/uL Monocytes # (Auto) 0.9 0-1.3 10 ^3/uL Eosinophils # (Auto) 0.2 0-0.8 10 ^3/uL Basophils # (Auto) 0.1 0-0.2 10 ^3/uL Nucleated Red Blood Cells 0.1 % Sodium Level 135 L 136-145 mmol/L Potassium Level 4.2 3.5-5.1 mmol/L Chloride Level 102 98-107 mmol/L Carbon Dioxide Level 28 20-31 mmol/L Anion Gap 5 5-15 Blood Urea Nitrogen 15 9-23 mg/dL Creatinine 1.02 0.700-1.30 mg/dL Glomerular Filtration Rate Calc 87 >90 mL/min BUN/Creatinine Ratio 14.7 10.0-20.0 Serum Glucose 370 H 74-106 mg/dL Hemoglobin A1c 10.3 H <5.7 % A1C Calcium Level 8.8 8.7-10.4 mg/dL Total Bilirubin 0.6 0.2-1.0 mg/dL Aspartate Amino Transferase (AST) 27 13-40 U/L Alanine Aminotransferase (ALT) 44 H 7-40 U/L Alkaline Phosphatase 137 H 46-116 U/L Total Protein 7.1 5.7-8.2 g/dL Albumin 3.7 3.2-4.8 g/dL Triglycerides Level 118 < 150 mg/dL Cholesterol Level 174 < 200 mg/dL LDL Cholesterol 125 H < 100 mg/dL HDL Cholesterol 42 40-59 mg/dL Thyroid Stimulating Hormone (TSH) 1.24 0.55-4.78 uIU/mL Troponin I High Sensitivity 28 </=54 ng/L Test 09/21/24 00:27 Range/Units Magnesium Level 1.8 1.6-2.6 mg/dL B-Type Natriuretic Peptide 497.83 0-100 pg/mL Assessment Acute on chronic decompensated HFrEF, NYHA class IV, newly diagnosed . Hypertension. Mitral valve regurgitation, moderate degree. Type 2 diabetes mellitus, uncontrolled (Hgb A1c 10.3%). Amphetamine abuse. Tobacco use. Obesity. Plan/Recommendation I agree with your ongoing assessment and care of plan. Patient has been seen by Tita Buckley NP on my behalf, her and I discussed the plan with the patient. Echocardiogram reveals EF 25%, dilated cardiomyopathy with RVSP 45 mmHg. Initiate guideline directed medical therapy for CHF as tolerated. Will add spironolactone with stable potassium. Strict intake and output, daily weights, maintain fluid restriction. Preload and afterload reduction. Lipid-lowering agent; monitor LFT's. Risk factor modifications, counseled. Cessation of amphetamine use. Additional plan as per the hospital course. Plan discussed with: Patient Date of Service: Sep 21, 2024 Billing Provider: RUBEN STOKES MD Cardiology Common Codes: [id number] INP/OBS CARE (High) Cardiology Consultation Codes: [id number] CONSULT <45MIN RUBEN STOKES MD Sep 21, 2024 15:25
[2024-09-21] MEDS: SACUBITRIL-VALSARTAN 24mg/26mg TAB PO SCH (21:23)
[2024-09-21] MEDS: ATORVASTATIN 20 MG TAB PO SCH (21:24)
[2024-09-21] MEDS: INSULIN LANTUS (GLARGINE) 1 /0.01ml (100units/ml) SC SCH (21:31)
[2024-09-21] MEDS ORDERED: ATORVASTATIN 20 MG TAB PO SCH (22:00)
[2024-09-21] MEDS ORDERED: InsuLIN REG 1unit/0.01ml Soln (100units/ml) SC SCH (22:00)
[2024-09-21] MEDS: IPRATROPIUM BROM 0.5 MG/2.5ML INH SOL NEB PRN (22:41)
[2024-09-21] MEDS: ALBUTEROL SULF 2.5 MG/0.5ML(0.5%) NEB SOLN NEB PRN (22:41)
[2024-09-22] VITALS (14 sets, daily range): BP systolic 99–128; BP diastolic 57–81; PULSE 80–102; RESP 16–19; TEMP 97.5–98.4; O2SAT 92–100
[2024-09-22 06:18] LABS: Basophils # (auto) 0.1 10 ^3/uL (0-0.2); Basophils % (auto) 0.6 % (0.0-2.0); Eosinophils # (auto) 0.4 10 ^3/uL (0-0.8); Eosinophils % (auto) 3.2 % (0.0-7.0); Hematocrit 47.4 % (41.0-53.0); Hemoglobin 15.7 g/dL (13.5-17.5); Lymphocytes # (auto) 2.9 10 ^3/uL (0.4-5.4); Lymphocytes % (auto) 23.3 % (10.0-50.0); Mean Corpuscular Hgb Conc. 33.1 g/dL (32.0-36.0); Mean Corpuscular Volume 96.7 fL (80.0-100.0); Monocytes % (auto) 7.9 % (0.0-12.0); Neutrophils # (auto) 8.1 10 ^3/uL (1.6-8.6); Nucleated Red Blood Cells % 0.1 %; Platelet Count (auto) 219 10^3/uL (140-450); Red Blood Cells 4.91 10^6/uL (4.5-5.90); Red Cell Distribution Width 13.6 % (11.8-14.3); White Blood Cell 12.5 10^3/uL (4.4-10.8)
[2024-09-22 06:29] LABS: Alanine Aminotransferase 34 U/L (7-40); Alkaline Phosphatase 128 U/L (46-116); Anion Gap 4 (5-15); BUN/Creatinine Ratio 16.3 (10.0-20.0); Blood Urea Nitrogen 21 mg/dL (9-23); Calcium 9.1 mg/dL (8.7-10.4); Carbon Dioxide 32 mmol/L (20-31); Chloride 102 mmol/L (98-107); Magnesium 2.1 mg/dL (1.6-2.6); Potassium 4.4 mmol/L (3.5-5.1); Sodium 138 mmol/L (136-145)
[2024-09-22 06:30] LABS: Albumin 3.4 g/dL (3.2-4.8); Aspartate Aminotransferase 26 U/L (13-40); Bilirubin, Total 0.5 mg/dL (0.2-1.0); Phosphorus 2.8 mg/dL (2.4-5.1); Total Protein 6.4 g/dL (5.7-8.2)
[2024-09-22 06:31] LABS: Glucose 228 mg/dL (74-106)
--- NOTE | 2024-09-22 10:27 | DVHPN2 ---
Consult Progress Note Date Seen: Sep 22, 2024 Subjective Patient reports: Feels better Other Systems: Remains in normal sinus rhythm on continuous examination proctor. Objective vital signs Vital Sign Date Time Temp Pulse Resp B/P (MAP) Pulse Ox O2 Delivery O2 Flow Rate FiO2 09/22/24 08:29 97.5 81 19 120/69 (86) 96 97.5 09/22/24 08:00 Room Air* 0 21 Total Intake and Output 09/21/24 09/21/24 09/22/24 15:00 23:00 07:00 Intake Total 1339 ml Output Total 900 ml Balance 439 ml medications Current Medications Medications Dose Ordered Sig/Juan Route Start Time Stop Time Status Last Admin Dose Admin Furosemide 40 mg DAILY IV 09/21/24 10:00 09/21/24 10:23 40 MG Diagnostic Test (Pha) 1 strip ACHS 09/21/24 07:00 09/22/24 05:59 1 STRIP Insulin Human Regular AC SC 09/21/24 07:00 09/22/24 06:05 6 UNITS Dextrose 50 ml UD PRN IV 09/21/24 03:45 Sodium Chloride 10 ml Q8HR IV 09/21/24 06:00 09/22/24 05:59 10 ML Acetaminophen 650 mg Q6HP PRN PO 09/21/24 03:45 Nicotine 1 patch DAILY TD 09/21/24 10:00 09/21/24 10:24 1 PATCH Carvedilol 6.25 mg Q12HR PO 09/21/24 10:00 09/21/24 21:25 6.25 MG Empaglifozin 10 mg DAILY PO 09/22/24 10:00 Sacubitril/ Valsartan 1 tab BID PO 09/21/24 22:00 09/21/24 21:23 1 TAB Insulin Glargine 12 units HS SC 09/21/24 22:00 09/21/24 21:31 12 UNITS Atorvastatin Calcium 40 mg HS PO 09/21/24 22:00 09/21/24 21:24 40 MG Albuterol 2.5 mg Q4HPRN PRN NEB 09/21/24 22:15 09/22/24 02:58 2.5 MG Ipratropium [place] 0.5 mg Q4HPRN PRN NEB 09/21/24 22:15 09/22/24 02:58 0.5 MG Clonazepam 0.25 mg Q12HP PRN PO 09/22/24 09:30 Examination: GENERAL:Normal, LUNGS:Normal, CVS:Normal, NEURO:Normal laboratory and microbiology Laboratory Tests 09/22/24 05:22 Test 09/22/24 05:22 Range/Units Serum Glucose 228 #H 74-106 mg/dL Problem List/Assessment/Plan Problem List/Assessment/Plan Acute on chronic decompensated HFrEF, NYHA class IV, newly diagnosed Hypertension Hyperlipidemia Mitral valve regurgitation, moderate degree Type 2 diabetes mellitus, uncontrolled (Hgb A1c 10.3%) Amphetamine abuse Tobacco use Obesity Plan/Recommendation (Dr. Quinn): * Echocardiogram reveals EF 25%, dilated cardiomyopathy with RVSP 45 mmHg * Continue guideline directed medical therapy for CHF as tolerated * Consider adding spironolactone with stable potassium * Strict intake and output, daily weights, maintain fluid restriction * Preload and afterload reduction * Lipid-lowering agent * Risk factor modifications, counseled * Cessation of amphetamine use Patient seen and examined at bedside with . Given that this patient is an active methamphetamine user, he is not a candidate for any invasive procedures at this time. Patient educated on cessation of amphetamine use and importance of continuing with guideline directed medical therapy for CHF. Patient should follow up in the outpatient setting with cardiology for further ischemic workup. There is no further inpatient cardiac workup indicated at this time. Thank you for allowing us to care for this patient. Please call with any questions or concerns. This medical document was created using an electronic medical record system with voice recognition software and computerized dictation system. Although this document has been carefully reviewed, there might still be some phonetic and typographical errors. Occasional wrong-word or ``sound-alike substitutions may have occurred due to the inherent limitations of voice recognition software. These areas are purely typographical due to imperfections of the software programs and do not reflect any compromise in the patient's medical care. Please read the chart carefully and recognize, using context, where these substitutions have occurred. Plan discussed with: Patient Date of Service: Sep 22, 2024 Billing Provider: ISIAH NASH Cardiology Common Codes: [id number] INP/OBS CARE(Mod) ISIAH NASH Sep 22, 2024 10:26
[2024-09-22] MEDS: clonazePAM 0.5 MG TAB PO PRN (10:51)
[2024-09-22] MEDS: EMPAGLIFLOZIN 10 MG TAB PO SCH (10:52)
--- NOTE | 2024-09-22 17:36 | DVHPN2 ---
Assessment/Plan Assessment/Plan Progress note Subjective 54-year-old male admitted for heart failure exacerbation. When I see the patient he is currently undergoing echo, however noted ejection fraction seems severely low. Comfortable lying flat, breathing in room air Patient seen by me today during rounds Limited ET< patient want to go outside but was stopped in the hallway as he was SOB. will use wheelchair and patient understand risk of going outside. Adding antianxiety clonazepam. Patient repeatedly mentioned he was in retirement and can be "crazy" if he got agitated. likelyhood of violent behaviour high. Otherwise patient was able to be redirected and educated regarding his current condition. Objective Physical exam Alert, oriented x3 PERRLA JVD mid neck Mild crackles S1-S2 regular rate and rhythm systolic murmur Abdomen soft nontender, no organomegaly Moving all four extremities lower extremity edema Lab A1c 10.3 hyperglycemia mild transaminitis high alkphos negative trop proBNP 480 utox with amphetamines and cannabis leukocytosis EKG LVH with strain pattern Imaging pulm vasc congestion Assessment and plan Heart failure with reduced ejection fraction, not in exacerbation amphetamine use cannabis use tobacco use obesity hypertension uncontrolled diabetes strict I&O daily weight smoking cessation initiate GDMT consult cardio for ischemic workup in new onset heart failure substance use abstinence insulin basal bolus FS ACHS NRT cardio consult appreciated klonazepam 0.25 BID marco Replete electrolytes Diet hearth healthy DVT prophylaxis lovenox Plan discussed with: Patient My Orders Orders - YOLANDE MORFIN MD Procedure Category Date Status Time Insulin Lantus PHA 09/21/24 In Process (Glargine) (Lantus) 22:00 Atorvastatin (Lipitor) PHA 09/21/24 In Process 22:00 Clonazepam Tablet PHA 09/22/24 In Process (Klonopin Tablet) 22:00 Date of Service: Sep 22, 2024 Billing Provider: YOLANDE MORFIN MD Common Visit Codes: [id number] INP/OBS CARE(HIGH) YOLANDE MORFIN MD Sep 22, 2024 17:36
--- NOTE | 2024-09-22 20:07 | DVHPN2 ---
Progress Note - Dictate Date Seen: Sep 22, 2024 Medical Necessity Reason Pt with a Central, PICC or Fol: No Subjective Patient was seen and evaluated in follow up. Patient reports feeling better. Patient remains in normal sinus rhythm on the experimental psychologist. WBC 12.5. Echocardiogram reveals EF 25%, dilated cardiomyopathy with RVSP 45 mmHg. vital signs Vital Sign Date Time Temp Pulse Resp B/P (MAP) Pulse Ox O2 Delivery O2 Flow Rate FiO2 09/22/24 11:51 97.6 82 16 115/80 (92) 95 97.6 09/22/24 10:00 Room Air* 0 21 Total Intake and Output 09/21/24 09/21/24 09/22/24 15:00 23:00 07:00 Intake Total 1339 ml Output Total 900 ml Balance 439 ml medications Current Medications Medications Dose Ordered Sig/Juan Route Start Time Stop Time Status Last Admin Dose Admin Furosemide 40 mg DAILY IV 09/21/24 10:00 09/22/24 10:53 40 MG Diagnostic Test (Pha) 1 strip ACHS 09/21/24 07:00 09/22/24 12:44 1 STRIP Insulin Human Regular AC SC 09/21/24 07:00 09/22/24 12:47 3 UNITS Dextrose 50 ml UD PRN IV 09/21/24 03:45 Sodium Chloride 10 ml Q8HR IV 09/21/24 06:00 09/22/24 12:47 10 ML Acetaminophen 650 mg Q6HP PRN PO 09/21/24 03:45 Nicotine 1 patch DAILY TD 09/21/24 10:00 09/22/24 10:54 1 PATCH Carvedilol 6.25 mg Q12HR PO 09/21/24 10:00 09/22/24 10:50 6.25 MG Empaglifozin 10 mg DAILY PO 09/22/24 10:00 09/22/24 10:52 10 MG Sacubitril/ Valsartan 1 tab BID PO 09/21/24 22:00 09/22/24 10:50 1 TAB Insulin Glargine 12 units HS SC 09/21/24 22:00 09/21/24 21:31 12 UNITS Atorvastatin Calcium 40 mg HS PO 09/21/24 22:00 09/21/24 21:24 40 MG Albuterol 2.5 mg Q4HPRN PRN NEB 09/21/24 22:15 09/22/24 11:33 2.5 MG Ipratropium [place] 0.5 mg Q4HPRN PRN NEB 09/21/24 22:15 09/22/24 11:33 0.5 MG Clonazepam 0.25 mg Q12HP PO 09/22/24 22:00 objective GENERAL: Awake, alert, oriented. Unkempt. Morbidly obese. LUNGS: Diminished breath sounds. CARDIOVASCULAR: Heart sounds are good. ABDOMEN: Soft. laboratory and microbiology Laboratory Tests 09/22/24 05:22 Test 09/22/24 05:22 Range/Units Serum Glucose 228 #H 74-106 mg/dL Problem List Acute on chronic decompensated HFrEF, NYHA class IV, newly diagnosed . Hypertension. Mitral valve regurgitation, moderate degree. Type 2 diabetes mellitus, uncontrolled (Hgb A1c 10.3%). Amphetamine abuse. Tobacco use. Obesity. Assessment/Plan Continue all current supportive medical care. Patient has been seen by Tita Buckley NP on my behalf, her and I discussed the plan with the patient. Continue guideline directed medical therapy for CHF as tolerated. Consider adding spironolactone with stable potassium. Strict intake and output, daily weights, maintain fluid restriction. Preload and afterload reduction. Lipid-lowering agent. Risk factor modifications, counseled. Cessation of amphetamine use. Additional plan as per the hospital course. Plan discussed with: Patient RUBEN STOKES MD Sep 22, 2024 16:37
[2024-09-22] MEDS: clonazePAM 0.5 MG TAB PO SCH (20:41)
[2024-09-23 01:00] VITALS: BP 107/55; PULSE 75; RESP 19; TEMP 97.3; O2SAT 95
[2024-09-23 05:00] VITALS: BP 108/71; PULSE 77; RESP 17; TEMP 99; O2SAT 91
[2024-09-23 06:22] LABS: Basophils # (auto) 0.1 10 ^3/uL (0-0.2); Eosinophils # (auto) 0.3 10 ^3/uL (0-0.8); Hemoglobin 17.7 g/dL (13.5-17.5)
[2024-09-23 06:25] LABS: Basophils % (auto) 0.6 % (0.0-2.0); Hematocrit 52.2 % (41.0-53.0); Lymphocytes # (auto) 2.3 10 ^3/uL (0.4-5.4); Lymphocytes % (auto) 17.3 % (10.0-50.0); Mean Corpuscular Hemoglobin 32.1 pg (28.0-32.0); Mean Corpuscular Hgb Conc. 33.8 g/dL (32.0-36.0); Mean Corpuscular Volume 94.9 fL (80.0-100.0); Monocytes # (auto) 1.1 10 ^3/uL (0-1.3); Monocytes % (auto) 8.3 % (0.0-12.0); Neutrophils # (auto) 9.7 10 ^3/uL (1.6-8.6); Neutrophils % (auto) 71.8 % (37.0-80.0); Nucleated Red Blood Cells % 0.1 %; Platelet Count (auto) 258 10^3/uL (140-450); Red Cell Distribution Width 13.4 % (11.8-14.3); White Blood Cell 13.5 10^3/uL (4.4-10.8)
[2024-09-23 07:01] LABS: Calcium 9.1 mg/dL (8.7-10.4); Chloride 103 mmol/L (98-107); Potassium 3.8 mmol/L (3.5-5.1); Sodium 139 mmol/L (136-145)
[2024-09-23 07:02] LABS: Anion Gap 8 (5-15); Carbon Dioxide 28 mmol/L (20-31)
[2024-09-23 07:07] LABS: Blood Urea Nitrogen 20 mg/dL (9-23); Glucose 132 mg/dL (74-106)
[2024-09-23 07:08] LABS: Magnesium 2.2 mg/dL (1.6-2.6)
[2024-09-23 07:10] LABS: Phosphorus 3.8 mg/dL (2.4-5.1)
[2024-09-23 07:32] VITALS: O2SAT 97
[2024-09-23 08:00] VITALS: PULSE 86; RESP 20; O2SAT 94
[2024-09-23 08:23] VITALS: BP 126/76; PULSE 83; RESP 17; TEMP 98.3; O2SAT 97
[2024-09-23] MEDS ORDERED: FURO20TA4 PO (09:19)
[2024-09-23] MEDS ORDERED: EMPA1TAB PO (09:19)
[2024-09-23] MEDS ORDERED: SPIR25TA PO (09:19)
[2024-09-23] MEDS ORDERED: INSLANTI SC (09:19)
[2024-09-23] MEDS ORDERED: SACU1TAB PO (09:19)
[2024-09-23] MEDS ORDERED: NICO14DI9 TD (09:19)
[2024-09-23] MEDS ORDERED: ATOR20TA50 PO (09:19)
[2024-09-23] MEDS ORDERED: BLOO1KIT60 XX (09:19)
[2024-09-23 10:00] VITALS: O2SAT 94
[2024-09-23] MEDS ORDERED: EMPAGLIFLOZIN 10 MG TAB PO SCH (10:00)
[2024-09-23] MEDS ORDERED: SPIRONOLACTONE 25 MG TAB PO SCH (10:00)
[2024-09-23] MEDS ORDERED: FUROSEMIDE 20 MG TAB PO SCH (18:00)
--- NOTE | 2024-09-23 19:53 | DVHDS2 ---
Discharge Summary Date of Admission Sep 21, 2024 at 04:26 Date of Discharge: Sep 23, 2024 Labs/Diagnostic Data: Laboratory Results Test 09/23/24 04:49 09/22/24 20:28 09/22/24 05:22 09/21/24 08:00 White Blood Count 13.5 10^3/uL (4.4-10.8) Red Blood Count 5.50 10^6/uL (4.5-5.90) Hemoglobin 17.7 g/dL (13.5-17.5) Hematocrit 52.2 % (41.0-53.0) Mean Corpuscular Volume 94.9 fL (80.0-100.0) Mean Corpuscular Hemoglobin 32.1 pg (28.0-32.0) Mean Corpuscular Hemoglobin Concent 33.8 g/dL (32.0-36.0) Red Cell Distribution Width 13.4 % (11.8-14.3) Platelet Count 258 10^3/uL (140-450) Mean Platelet Volume 8.7 fL (6.9-10.8) Neutrophils (%) (Auto) 71.8 % (37.0-80.0) Lymphocytes (%) (Auto) 17.3 % (10.0-50.0) Monocytes (%) (Auto) 8.3 % (0.0-12.0) Eosinophils (%) (Auto) 2.0 % (0.0-7.0) Basophils (%) (Auto) 0.6 % (0.0-2.0) Neutrophils # (Auto) 9.7 10 ^3/uL (1.6-8.6) Lymphocytes # (Auto) 2.3 10 ^3/uL (0.4-5.4) Monocytes # (Auto) 1.1 10 ^3/uL (0-1.3) Eosinophils # (Auto) 0.3 10 ^3/uL (0-0.8) Basophils # (Auto) 0.1 10 ^3/uL (0-0.2) Nucleated Red Blood Cells 0.1 % Sodium Level 139 mmol/L (136-145) Potassium Level 3.8 mmol/L (3.5-5.1) Chloride Level 103 mmol/L (98-107) Carbon Dioxide Level 28 mmol/L (20-31) Anion Gap 8 (5-15) Blood Urea Nitrogen 20 mg/dL (9-23) Creatinine 1.00 mg/dL (0.700-1.30) Glomerular Filtration Rate Calc 89 mL/min (>90) BUN/Creatinine Ratio 20.0 (10.0-20.0) Serum Glucose 132 mg/dL (74-106) Calcium Level 9.1 mg/dL (8.7-10.4) Phosphorus Level 3.8 mg/dL (2.4-5.1) Magnesium Level 2.2 mg/dL (1.6-2.6) POC Glucose 234 mg/dl (70-106) Total Bilirubin 0.5 mg/dL (0.2-1.0) Aspartate Amino Transferase (AST) 26 U/L (13-40) Alanine Aminotransferase (ALT) 34 U/L (7-40) Alkaline Phosphatase 128 U/L (46-116) Total Protein 6.4 g/dL (5.7-8.2) Albumin 3.4 g/dL (3.2-4.8) Urine Color Light-yellow (Yellow) Urine Clarity Clear (Clear) Urine pH 6.0 (5.0-9.0) Urine Specific [place] 1.017 (1.001-1.035) Urine Protein 2+ (Negative) Urine Ketones Negative (Negative) Urine Blood Negative /uL (Negative) Urine Nitrite Negative (Negative) Urine Bilirubin Negative (Negative) Urine Urobilinogen Normal mg/dL (Negative) Urine Leukocyte Esterase Negative /uL (Negative) Urine RBC 1 /hpf (0 - 3) Urine WBC <1 /hpf (0 - 3) Urine Squamous Epithelial Cells None seen /hpf (<5) Urine Bacteria None seen /hpf (None Seen) Urine Hyaline Casts Few /lpf (0 - 2) Urine Glucose 2+ mg/dL (Normal) Urine Opiates Screen Neg (NEGATIVE) Urine Fentanyl Screen Neg (NEGATIVE) Urine Barbiturates Screen Neg (NEGATIVE) Urine Phencyclidine Screen Neg (NEGATIVE) Urine Amphetamines Screen Pos (NEGATIVE) Urine Benzodiazepines Screen Neg (NEGATIVE) Urine Cocaine Screen Neg (NEGATIVE) Urine Cannabinoids Screen Pos (NEGATIVE) Test 09/21/24 06:58 09/21/24 01:25 09/21/24 00:27 Hemoglobin A1c 10.3 % A1C (<5.7) Triglycerides Level 118 mg/dL (< 150) Cholesterol Level 174 mg/dL (< 200) LDL Cholesterol 125 mg/dL (< 100) HDL Cholesterol 42 mg/dL (40-59) Thyroid Stimulating Hormone (TSH) 1.24 uIU/mL (0.55-4.78) Troponin I High Sensitivity 28 ng/L (</=54) B-Type Natriuretic Peptide 497.83 pg/mL (0-100) Other Laboratory Tests 09/23/24 04:49 Brief Hx & Hospital Course: 54 M with multiple comorbidities admitted for new dx of heart failure. patient uses amphetamines. has DM, COPD, HTN, none controlled. Non compliant with diet, meds or follow up. Started and titarated up on GDMT. Coreg dc'd as patient had nightmares. Insulint sent. Stable to discharge home. Condition at Discharge: Good Final Diagnosis/Problems List Heart failure with reduced ejection fraction, not in exacerbation amphetamine use cannabis use tobacco use hypertension uncontrolled diabetes Discharge Disposition: Home Discharge Instruct/Medications Diet: Cardiac 2g Na,low cholest Activity: No Restrictions, As Tolerated Follow Up/Referral: PCP cardiology dc clinic in 1 week for BMP Medications: no coreg, had nightmares aldactone jardiance entresto lasix 38 Discharge Statement: "Patient was advised to return to the ER or call 911 if any headaches, dizziness, shortness of breath, chest pain, abdominal pain, bleeding, fevers, or worsening of medical condition. Patient was counseled about treatment plan, medications, possible side effects, patientverbalized understanding. All questions were answered to the best of my ability. This discharge took greater then 30 minutes in planning, reviewing documentation, counseling the patient, and discussing with other team members." ASSESSMENT ASSESSMENT Assessment Heart failure with reduced ejection fraction, not in exacerbation amphetamine use cannabis use tobacco use hypertension uncontrolled diabetes Date of Service: Sep 23, 2024 Billing Provider: YOLANDE MORFIN MD Common Visit Codes: [id number] DISCH DAY >30min YOLANDE MORFIN MD Sep 23, 2024 19:53
--- NOTE | 2024-09-24 15:29 | PEER ---
Peer to Peer Review Time DATE: 09/24/24 TIME: 15:27 Review and Recommendations: Spoke with Dr. Castanon, approved for inpatient level of care for Acute Systolic CHF and Acute Resp Failure. DEBORA PACHECO MD Sep 24, 2024 15:29
[2024-09-25] MEDS ORDERED: VALS40TA2 PO (14:24)
== END 2024-09-23 11:00 | disposition home or self-care (01) | DRG 133 ==
LOC: EDUNIT# 23:58 → EDBD 23:58 → ER 09-21 00:01 → EDBD 09-21 00:01 → TELE 09-21 04:26 → TELE-CENTR 09-21 04:27
PROVIDERS: ADMIT Nurse Practitioner Family; ATTEND Student in an Organized Health Care Education/Training Program
DX: J96.01 Acute respiratory failure with hypoxia (principal); I50.23 Acute on chronic systolic (congestive) heart failure; J44.1 Chronic obstructive pulmonary disease with (acute) exacerbation; I42.0 Dilated cardiomyopathy; E11.65 Type 2 diabetes mellitus with hyperglycemia; D72.829 Elevated white blood cell count, unspecified; E66.9 Obesity, unspecified; F15.10 Other stimulant abuse, uncomplicated; I11.0 Hypertensive heart disease with heart failure; I34.0 Nonrheumatic mitral (valve) insufficiency; F17.210 Nicotine dependence, cigarettes, uncomplicated; Z91.119 Patient's noncompliance with dietary regimen due to unspecified reason; Z88.0 Allergy status to penicillin; Z68.24 Body mass index [BMI] 24.0-24.9, adult; Z79.899 Other long term (current) drug therapy
CPT/HCPCS: 36415; 71045; 80048; 80053; 80061; 80307; 81001; 82962; 83036; 83735; 83880; 84100; 84443; 84484; 85025; 93005; 93306; 94640; 96365; 96366; 96375; 96376; 99291; G0378; J1815